=== PATIENT | male | born 1965 | race African-American/Black ===

== ENCOUNTER 2020-07-04 20:15 | Inpatient (IN) | payer OTHER, SELFPAY ==
[~2020-07-04] VITALS: Ht 182.9 cm; Wt 57.2 kg
[2020-07-04 20:15] VITALS: BP_SYST 140
[2020-07-04 21:33] LABS: BASOPHILS # (AUTO) 0.1 K/uL (0.0-0.2); BASOPHILS % (AUTO) 1.7 % (0.0-2.0); EOSINOPHILS # (AUTO) 0.2 K/uL (0.0-0.4); EOSINOPHILS % (AUTO) 3.5 % (0.0-4.0); LYMPHOCYTES % (AUTO) 18.5 % (20.5-51.5); MEAN CORPUSCULAR HEMOGLOBIN 28 pg (27-31); MEAN CORPUSCULAR HGB CONC 33 % (32-36); MEAN CORPUSCULAR VOLUME 85 fL (79.0-98.0); MONOCYTES # (AUTO) 0.5 K/uL (0.0-1.0); MONOCYTES % (AUTO) 9.1 % (1.7-9.3); NEUTROPHILS # (AUTO) 3.6 K/uL (1.8-7.7); NEUTROPHILS % (AUTO) 67.2 % (40.0-70.0); PLATELET COUNT (AUTO) 116 K/uL (130-430); RED BLOOD CELL COUNT(AUTO) 2.52 MIL/uL (4.2-6.2); RED CELL DISTRIBUTION WIDTH 19.7 % (9.0-15.0); WHITE BLOOD COUNT (AUTO) 5.4 K/uL (4.8-10.8)
[2020-07-04 21:42] LABS: HEMATOCRIT 21.5 % (36-54)
[2020-07-04 22:01] LABS: CALCIUM 9.1 mg/dL (8.4-11.0); POTASSIUM 5.6 mmol/L (3.5-5.1)
[2020-07-04 22:07] LABS: ALBUMIN 2.3 g/dL (3.4-4.8); TOTAL BILIRUBIN 0.5 mg/dL (0.0-1.0)
[2020-07-04 22:20] LABS: CREATININE 10.94 mg/dL (0.55-1.30)
[2020-07-05] MEDS ORDERED: ZOLP5TAB2 PO (07:24)
[2020-07-05] MEDS ORDERED: ACET325T PO (07:25)
[2020-07-05] MEDS ORDERED: LIP20 PO (07:25)
[2020-07-05] MEDS ORDERED: GABA-529 PO (07:26)
[2020-07-05] MEDS ORDERED: HYDR-3917 PO (07:26)
[2020-07-05] MEDS ORDERED: DOXY100C PO (07:28)
[2020-07-05] MEDS ORDERED: SODIUM POLYSTYRENE SULFONATE 15 GM/60 ML UDBTL PO ONE (15:45)
[2020-07-06 00:37] VITALS: BP_SYST 161
[2020-07-06 07:56] LABS: ALBUMIN 2.3 g/dL (3.4-4.8); CALCIUM 8.8 mg/dL (8.4-11.0); PHOSPHORUS 5.4 mg/dL (2.7-4.5); POTASSIUM 5.1 mmol/L (3.5-5.1); TOTAL BILIRUBIN 0.4 mg/dL (0.0-1.0)
[2020-07-06 08:00] VITALS: BP_SYST 155
[2020-07-06 08:19] LABS: CREATININE 7.68 mg/dL (0.55-1.30)
[2020-07-06 08:20] LABS: BASOPHILS % (AUTO) 0.8 % (0.0-2.0); EOSINOPHILS # (AUTO) 0.2 K/uL (0.0-0.4); EOSINOPHILS % (AUTO) 3.3 % (0.0-4.0); LYMPHOCYTES % (AUTO) 18.4 % (20.5-51.5); MEAN CORPUSCULAR HEMOGLOBIN 29 pg (27-31); MEAN CORPUSCULAR HGB CONC 33 % (32-36); MEAN CORPUSCULAR VOLUME 89 fL (79.0-98.0); MONOCYTES # (AUTO) 0.4 K/uL (0.0-1.0); MONOCYTES % (AUTO) 7.8 % (1.7-9.3); NEUTROPHILS # (AUTO) 3.9 K/uL (1.8-7.7); NEUTROPHILS % (AUTO) 69.7 % (40.0-70.0); PLATELET COUNT (AUTO) 121 K/uL (130-430); RED BLOOD CELL COUNT(AUTO) 2.25 MIL/uL (4.2-6.2); RED CELL DISTRIBUTION WIDTH 19.7 % (9.0-15.0); WHITE BLOOD COUNT (AUTO) 5.6 K/uL (4.8-10.8)
[2020-07-06] MEDS ORDERED: HYDROcodone/ACETAMIN 5-325 MG TAB (NORCO/ VICODIN) PO PRN (08:30)
[2020-07-06] MEDS ORDERED: GABAPENTIN 100 MG CAPSULE PO ONE (08:30)
[2020-07-06] MEDS ORDERED: NALOXONE HCL 0.4 MG/ML AMP (NARCAN) IVP PRN (08:30)
[2020-07-06] MEDS ORDERED: ACETAMINOPHEN 325 MG TABLET PO PRN (08:30)
[2020-07-06] MEDS ORDERED: DOXYCYCLINE HYCLATE 100 MG CAPSULE PO ONE (08:30)
[2020-07-06 09:06] LABS: HEMATOCRIT 20.1 % (36-54); HEMOGLOBIN 6.6 g/dL (14.0-18.0)
[2020-07-06] MEDS ORDERED: AZITHROMYCIN 500 MG in NS 250 ML IV SCH (11:00)
[2020-07-06 12:59] VITALS: BP_SYST 150
[2020-07-06] MEDS: GABAPENTIN 100 MG CAPSULE PO SCH ×2 (14:36→21:26)
[2020-07-06] MEDS ORDERED: CEFEPIME 2 GM in D5W 100 ML IV SCH (15:30)
[2020-07-06] MEDS: SEVELAMER CARBONATE 800 MG TABLET PO SCH ×2 (15:31→17:27)
[2020-07-06] MEDS ORDERED: CEFEPIME 2 GM/VIAL (MAXIPIME) ONE (18:42)
[2020-07-06] MEDS: DOXYCYCLINE HYCLATE 100 MG CAPSULE PO SCH (21:26)
[2020-07-06] MEDS: ATORVASTATIN 20 MG TABLET PO SCH (21:26)
[2020-07-06] MEDS: ZOLPIDEM TARTRATE 5 MG TABLET PO PRN (21:40)
[2020-07-07] MEDS: GABAPENTIN 100 MG CAPSULE PO SCH ×3 (07:20→23:20)
[2020-07-07 08:00] VITALS: BP_SYST 171
[2020-07-07 08:28] LABS: BASOPHILS # (AUTO) 0.1 K/uL (0.0-0.2); EOSINOPHILS # (AUTO) 0.3 K/uL (0.0-0.4); EOSINOPHILS % (AUTO) 4.2 % (0.0-4.0); HEMATOCRIT 27.6 % (36-54); HEMOGLOBIN 9.3 g/dL (14.0-18.0); LYMPHOCYTES # (AUTO) 1.2 K/uL (1.0-5.5); LYMPHOCYTES % (AUTO) 18.5 % (20.5-51.5); MEAN CORPUSCULAR HEMOGLOBIN 29 pg (27-31); MEAN CORPUSCULAR HGB CONC 34 % (32-36); MEAN CORPUSCULAR VOLUME 87 fL (79.0-98.0); MONOCYTES # (AUTO) 0.4 K/uL (0.0-1.0); MONOCYTES % (AUTO) 5.8 % (1.7-9.3); NEUTROPHILS # (AUTO) 4.7 K/uL (1.8-7.7); NEUTROPHILS % (AUTO) 70.5 % (40.0-70.0); PLATELET COUNT (AUTO) 129 K/uL (130-430); RED BLOOD CELL COUNT(AUTO) 3.16 MIL/uL (4.2-6.2); RED CELL DISTRIBUTION WIDTH 17.8 % (9.0-15.0); WHITE BLOOD COUNT (AUTO) 6.7 K/uL (4.8-10.8)
[2020-07-07] MEDS: EPOETIN ALFA 10,000 UNITS/ML VIAL SUBCUT SCH (08:42)
[2020-07-07] MEDS: DOXYCYCLINE HYCLATE 100 MG CAPSULE PO SCH ×2 (08:42→23:20)
[2020-07-07] MEDS: SEVELAMER CARBONATE 800 MG TABLET PO SCH ×3 (08:42→17:15)
[2020-07-07 08:47] LABS: CALCIUM 8.6 mg/dL (8.4-11.0); CREATININE 5.82 mg/dL (0.55-1.30); POTASSIUM 5.6 mmol/L (3.5-5.1)
[2020-07-07 12:04] VITALS: BP_SYST 196
[2020-07-07] MEDS ORDERED: SODIUM POLYSTYRENE SULFONATE 15 GM/60 ML UDBTL PO ONE (15:15)
[2020-07-07] MEDS: HYDROcodone/ACETAMIN 5-325 MG TAB (NORCO/ VICODIN) PO PRN ×2 (15:16→23:20)
[2020-07-07] MEDS ORDERED: HYDROcodone/ACETAMIN 5-325 MG TAB (NORCO/ VICODIN) ONE (15:16)
[2020-07-07 16:03] VITALS: BP_SYST 160
[2020-07-07 20:00] VITALS: BP_SYST 158
[2020-07-07] MEDS: ZOLPIDEM TARTRATE 5 MG TABLET PO PRN (23:20)
[2020-07-07] MEDS: ATORVASTATIN 20 MG TABLET PO SCH (23:20)
[2020-07-08] VITALS: BP_SYST 189
[2020-07-08] MEDS: cloNIDine HCL 0.1 MG TABLET PO PRN ×3 (01:45→17:28)
[2020-07-08 06:30] VITALS: BP_SYST 179
[2020-07-08] MEDS: GABAPENTIN 100 MG CAPSULE PO SCH ×3 (06:45→21:41)
[2020-07-08] MEDS: HYDROcodone/ACETAMIN 5-325 MG TAB (NORCO/ VICODIN) PO PRN ×2 (06:45→21:41)
[2020-07-08 08:23] VITALS: BP_SYST 191
[2020-07-08] MEDS: DOXYCYCLINE HYCLATE 100 MG CAPSULE PO SCH ×2 (08:24→21:41)
[2020-07-08] MEDS: SEVELAMER CARBONATE 800 MG TABLET PO SCH ×3 (08:24→17:28)
[2020-07-08 12:29] VITALS: BP_SYST 165
[2020-07-08 15:57] VITALS: BP_SYST 164
[2020-07-08 20:00] VITALS: BP_SYST 158
[2020-07-08] MEDS: ATORVASTATIN 20 MG TABLET PO SCH (21:41)
[2020-07-09] VITALS: BP_SYST 155
[2020-07-09] MEDS: ZOLPIDEM TARTRATE 5 MG TABLET PO PRN (01:08)
[2020-07-09] MEDS: GABAPENTIN 100 MG CAPSULE PO SCH ×3 (05:24→22:16)
[2020-07-09 07:52] VITALS: BP_SYST 156
[2020-07-09] MEDS: SEVELAMER CARBONATE 800 MG TABLET PO SCH ×3 (07:53→17:49)
[2020-07-09 08:58] LABS: BASOPHILS # (AUTO) 0.1 K/uL (0.0-0.2); BASOPHILS % (AUTO) 1.4 % (0.0-2.0); EOSINOPHILS # (AUTO) 0.3 K/uL (0.0-0.4); EOSINOPHILS % (AUTO) 4.4 % (0.0-4.0); HEMATOCRIT 26.6 % (36-54); HEMOGLOBIN 8.8 g/dL (14.0-18.0); LYMPHOCYTES # (AUTO) 1.3 K/uL (1.0-5.5); LYMPHOCYTES % (AUTO) 18.4 % (20.5-51.5); MEAN CORPUSCULAR HEMOGLOBIN 30 pg (27-31); MEAN CORPUSCULAR HGB CONC 33 % (32-36); MEAN CORPUSCULAR VOLUME 89 fL (79.0-98.0); MONOCYTES # (AUTO) 0.4 K/uL (0.0-1.0); MONOCYTES % (AUTO) 5.3 % (1.7-9.3); NEUTROPHILS # (AUTO) 4.8 K/uL (1.8-7.7); NEUTROPHILS % (AUTO) 70.5 % (40.0-70.0); PLATELET COUNT (AUTO) 129 K/uL (130-430); RED BLOOD CELL COUNT(AUTO) 2.97 MIL/uL (4.2-6.2); RED CELL DISTRIBUTION WIDTH 18.4 % (9.0-15.0); WHITE BLOOD COUNT (AUTO) 6.8 K/uL (4.8-10.8)
[2020-07-09] MEDS: DOXYCYCLINE HYCLATE 100 MG CAPSULE PO SCH ×2 (09:00→22:15)
[2020-07-09 09:20] LABS: CALCIUM 8.7 mg/dL (8.4-11.0); CREATININE 6.89 mg/dL (0.55-1.30); POTASSIUM 5.3 mmol/L (3.5-5.1)
[2020-07-09 16:06] VITALS: BP_SYST 174
[2020-07-09] MEDS: hydrALAZINE HCL 25 MG TABLET PO SCH (16:07)
[2020-07-09] MEDS: FAMOTIDINE 20 MG TABLET PO SCH (16:07)
[2020-07-09] MEDS: CHOLECALCIFEROL (VITAMIN D3) 2,000 UNIT TABLET PO SCH (16:07)
[2020-07-09] MEDS: ASCORBIC ACID 500 MG TABLET PO SCH ×2 (16:07→22:16)
[2020-07-09 22:11] VITALS: BP_SYST 179
[2020-07-09] MEDS: ATORVASTATIN 20 MG TABLET PO SCH (22:15)
[2020-07-09] MEDS: HYDROcodone/ACETAMIN 5-325 MG TAB (NORCO/ VICODIN) PO PRN (22:18)
[2020-07-09] MEDS: cloNIDine HCL 0.1 MG TABLET PO PRN (22:20)
[2020-07-10 00:28] VITALS: BP_SYST 159
[2020-07-10] MEDS: GABAPENTIN 100 MG CAPSULE PO SCH ×3 (05:58→21:36)
[2020-07-10 08:00] VITALS: BP_SYST 153
[2020-07-10] MEDS: hydrALAZINE HCL 25 MG TABLET PO SCH (09:00)
[2020-07-10] MEDS: SEVELAMER CARBONATE 800 MG TABLET PO SCH ×3 (09:30→19:10)
[2020-07-10 10:18] LABS: CALCIUM 7.9 mg/dL (8.4-11.0); POTASSIUM 5.6 mmol/L (3.5-5.1)
[2020-07-10] MEDS: FAMOTIDINE 20 MG TABLET PO SCH (10:30)
[2020-07-10] MEDS: ASCORBIC ACID 500 MG TABLET PO SCH ×2 (10:30→21:36)
[2020-07-10] MEDS: DOXYCYCLINE HYCLATE 100 MG CAPSULE PO SCH ×2 (10:30→21:36)
[2020-07-10] MEDS: CHOLECALCIFEROL (VITAMIN D3) 2,000 UNIT TABLET PO SCH (10:30)
[2020-07-10 10:57] LABS: CREATININE 8.86 mg/dL (0.55-1.30)
[2020-07-10] MEDS: HYDROcodone/ACETAMIN 5-325 MG TAB (NORCO/ VICODIN) PO PRN ×2 (11:00→21:49)
[2020-07-10 12:00] VITALS: BP_SYST 160
[2020-07-10 16:00] VITALS: BP_SYST 178
[2020-07-10] MEDS ORDERED: DEXAMETHASONE SOD PHOSPHATE 10 MG/ML VIAL IVP SCH (16:45)
[2020-07-10] MEDS: EPOETIN ALFA 10,000 UNITS/ML VIAL SUBCUT SCH (19:19)
[2020-07-10 20:00] VITALS: BP_SYST 173
[2020-07-10] MEDS: ATORVASTATIN 20 MG TABLET PO SCH (21:36)
[2020-07-10] MEDS: cloNIDine HCL 0.1 MG TABLET PO PRN (21:48)
[2020-07-11] VITALS: BP_SYST 172
[2020-07-11] MEDS: cloNIDine HCL 0.1 MG TABLET PO PRN ×2 (01:50→21:30)
[2020-07-11 05:40] VITALS: BP_SYST 163
[2020-07-11] MEDS: GABAPENTIN 100 MG CAPSULE PO SCH ×3 (05:40→21:05)
[2020-07-11] MEDS: SEVELAMER CARBONATE 800 MG TABLET PO SCH ×3 (08:00→18:16)
[2020-07-11] MEDS: hydrALAZINE HCL 25 MG TABLET PO SCH (09:00)
[2020-07-11] MEDS: CHOLECALCIFEROL (VITAMIN D3) 2,000 UNIT TABLET PO SCH (09:00)
[2020-07-11] MEDS: DOXYCYCLINE HYCLATE 100 MG CAPSULE PO SCH ×2 (09:00→21:00)
[2020-07-11] MEDS: ASCORBIC ACID 500 MG TABLET PO SCH ×2 (09:00→21:00)
[2020-07-11] MEDS: FAMOTIDINE 20 MG TABLET PO SCH (09:00)
[2020-07-11 09:54] LABS: CALCIUM 8.6 mg/dL (8.4-11.0); CREATININE 6.36 mg/dL (0.55-1.30)
[2020-07-11] MEDS: HYDROcodone/ACETAMIN 5-325 MG TAB (NORCO/ VICODIN) PO PRN ×4 (10:30→23:49)
[2020-07-11 12:05] VITALS: BP_SYST 169
[2020-07-11 16:02] VITALS: BP_SYST 155
[2020-07-11 20:00] VITALS: BP_SYST 169
[2020-07-11] MEDS: ATORVASTATIN 20 MG TABLET PO SCH (21:00)
[2020-07-11] MEDS: ZOLPIDEM TARTRATE 5 MG TABLET PO PRN (23:50)
[2020-07-12] VITALS (7 sets, daily range): BP systolic 142–197
[2020-07-12] MEDS: HYDROcodone/ACETAMIN 5-325 MG TAB (NORCO/ VICODIN) PO PRN ×3 (05:30→16:44)
[2020-07-12] MEDS: GABAPENTIN 100 MG CAPSULE PO SCH ×3 (05:30→22:26)
[2020-07-12] MEDS: SEVELAMER CARBONATE 800 MG TABLET PO SCH ×3 (08:26→16:43)
[2020-07-12] MEDS: hydrALAZINE HCL 25 MG TABLET PO SCH (08:27)
[2020-07-12] MEDS: ASCORBIC ACID 500 MG TABLET PO SCH ×2 (08:27→22:26)
[2020-07-12] MEDS: FAMOTIDINE 20 MG TABLET PO SCH (08:27)
[2020-07-12] MEDS: CHOLECALCIFEROL (VITAMIN D3) 2,000 UNIT TABLET PO SCH (08:27)
[2020-07-12] MEDS: DOXYCYCLINE HYCLATE 100 MG CAPSULE PO SCH ×2 (08:27→22:26)
[2020-07-12 08:58] LABS: CALCIUM 8.8 mg/dL (8.4-11.0)
[2020-07-12 09:03] LABS: BASOPHILS # (AUTO) 0.1 K/uL (0.0-0.2); BASOPHILS % (AUTO) 1.2 % (0.0-2.0); EOSINOPHILS # (AUTO) 0.3 K/uL (0.0-0.4); EOSINOPHILS % (AUTO) 4.5 % (0.0-4.0); HEMOGLOBIN 9.1 g/dL (14.0-18.0); LYMPHOCYTES # (AUTO) 1.1 K/uL (1.0-5.5); LYMPHOCYTES % (AUTO) 17.2 % (20.5-51.5); MEAN CORPUSCULAR HEMOGLOBIN 30 pg (27-31); MEAN CORPUSCULAR HGB CONC 33 % (32-36); MEAN CORPUSCULAR VOLUME 93 fL (79.0-98.0); MONOCYTES # (AUTO) 0.3 K/uL (0.0-1.0); MONOCYTES % (AUTO) 5.2 % (1.7-9.3); NEUTROPHILS # (AUTO) 4.7 K/uL (1.8-7.7); NEUTROPHILS % (AUTO) 71.9 % (40.0-70.0); PLATELET COUNT (AUTO) 125 K/uL (130-430); RED BLOOD CELL COUNT(AUTO) 3.02 MIL/uL (4.2-6.2); RED CELL DISTRIBUTION WIDTH 18.2 % (9.0-15.0); WHITE BLOOD COUNT (AUTO) 6.6 K/uL (4.8-10.8)
[2020-07-12 09:48] LABS: CREATININE 8.77 mg/dL (0.55-1.30); POTASSIUM 6.1 mmol/L (3.5-5.1)
[2020-07-12] MEDS: EPOETIN ALFA 10,000 UNITS/ML VIAL SUBCUT SCH (11:47)
[2020-07-12] MEDS: DECADRON 4 MG TABLET PO SCH (13:37)
[2020-07-12] MEDS: cloNIDine HCL 0.1 MG TABLET PO PRN (16:26)
[2020-07-12] MEDS: ZOLPIDEM TARTRATE 5 MG TABLET PO PRN (22:26)
[2020-07-12] MEDS: ATORVASTATIN 20 MG TABLET PO SCH (22:26)
[2020-07-13] VITALS: BP_SYST 157
[2020-07-13] MEDS: GABAPENTIN 100 MG CAPSULE PO SCH ×3 (07:05→21:41)
[2020-07-13 08:00] VITALS: BP_SYST 170
[2020-07-13] MEDS: SEVELAMER CARBONATE 800 MG TABLET PO SCH ×3 (08:33→18:28)
[2020-07-13] MEDS: ASCORBIC ACID 500 MG TABLET PO SCH ×2 (08:33→21:40)
[2020-07-13] MEDS: hydrALAZINE HCL 25 MG TABLET PO SCH (08:33)
[2020-07-13] MEDS: CHOLECALCIFEROL (VITAMIN D3) 2,000 UNIT TABLET PO SCH (08:33)
[2020-07-13] MEDS: FAMOTIDINE 20 MG TABLET PO SCH (08:33)
[2020-07-13] MEDS: HYDROcodone/ACETAMIN 5-325 MG TAB (NORCO/ VICODIN) PO PRN ×2 (08:34→21:40)
[2020-07-13] MEDS: DOXYCYCLINE HYCLATE 100 MG CAPSULE PO SCH (08:35)
[2020-07-13] MEDS: DECADRON 4 MG TABLET PO SCH (11:51)
[2020-07-13 12:00] VITALS: BP_SYST 145
[2020-07-13 16:00] VITALS: BP_SYST 190
[2020-07-13 20:00] VITALS: BP_SYST 171
[2020-07-13] MEDS: ZOLPIDEM TARTRATE 5 MG TABLET PO PRN (21:39)
[2020-07-13] MEDS: ATORVASTATIN 20 MG TABLET PO SCH (21:40)
[2020-07-13] MEDS: cloNIDine HCL 0.1 MG TABLET PO PRN (21:40)
[2020-07-13 22:22] LABS: CALCIUM 8.9 mg/dL (8.4-11.0)
[2020-07-13 22:44] LABS: CREATININE 8.13 mg/dL (0.55-1.30); POTASSIUM 6.5 mmol/L (3.5-5.1)
[2020-07-13] MEDS ORDERED: SODIUM POLYSTYRENE SULFONATE 15 GM/60 ML UDBTL PO ONE (23:15)
[2020-07-14] MEDS: HYDROcodone/ACETAMIN 5-325 MG TAB (NORCO/ VICODIN) PO PRN ×2 (04:39→08:46)
[2020-07-14] MEDS: GABAPENTIN 100 MG CAPSULE PO SCH ×3 (06:48→21:36)
[2020-07-14 08:00] VITALS: BP_SYST 208
[2020-07-14] MEDS: CHOLECALCIFEROL (VITAMIN D3) 2,000 UNIT TABLET PO SCH (08:45)
[2020-07-14] MEDS: ASCORBIC ACID 500 MG TABLET PO SCH ×2 (08:45→21:36)
[2020-07-14] MEDS: FAMOTIDINE 20 MG TABLET PO SCH (08:45)
[2020-07-14] MEDS: SEVELAMER CARBONATE 800 MG TABLET PO SCH ×3 (08:45→17:24)
[2020-07-14] MEDS: hydrALAZINE HCL 25 MG TABLET PO SCH (08:46)
[2020-07-14] MEDS: DECADRON 4 MG TABLET PO SCH (11:53)
[2020-07-14] MEDS ORDERED: LOSARTAN POTASSIUM 50 MG TABLET (COZAAR) PO ONE (15:45)
[2020-07-14] MEDS ORDERED: LOSARTAN POTASSIUM 50 MG TABLET (COZAAR) ONE (15:58)
[2020-07-14 16:00] VITALS: BP_SYST 200
[2020-07-14] MEDS ORDERED: amLODIPine BESYLATE 5 MG TABLET PO ONE (17:15)
[2020-07-14] MEDS: EPOETIN ALFA 10,000 UNITS/ML VIAL SUBCUT SCH (17:24)
[2020-07-14] MEDS ORDERED: amLODIPine BESYLATE 5 MG TABLET ONE (17:24)
[2020-07-14 20:00] VITALS: BP_SYST 202
[2020-07-14] MEDS ORDERED: LOSARTAN POTASSIUM 25 MG TABLET PO SCH (21:00)
[2020-07-14] MEDS: ATORVASTATIN 20 MG TABLET PO SCH (21:36)
[2020-07-14] MEDS: ZOLPIDEM TARTRATE 5 MG TABLET PO PRN (21:37)
[2020-07-15] VITALS: BP_SYST 155
[2020-07-15] MEDS: HYDROcodone/ACETAMIN 5-325 MG TAB (NORCO/ VICODIN) PO PRN ×6 (01:08→22:30)
[2020-07-15] MEDS: GABAPENTIN 100 MG CAPSULE PO SCH ×3 (06:15→21:40)
[2020-07-15 06:42] LABS: BASOPHILS % (AUTO) 0.2 % (0.0-2.0); HEMATOCRIT 28.2 % (36-54); HEMOGLOBIN 9.2 g/dL (14.0-18.0); LYMPHOCYTES # (AUTO) 0.4 K/uL (1.0-5.5); LYMPHOCYTES % (AUTO) 9.9 % (20.5-51.5); MEAN CORPUSCULAR HEMOGLOBIN 29 pg (27-31); MEAN CORPUSCULAR HGB CONC 33 % (32-36); MEAN CORPUSCULAR VOLUME 90 fL (79.0-98.0); MONOCYTES # (AUTO) 0.4 K/uL (0.0-1.0); MONOCYTES % (AUTO) 8.8 % (1.7-9.3); NEUTROPHILS # (AUTO) 3.4 K/uL (1.8-7.7); NEUTROPHILS % (AUTO) 81.1 % (40.0-70.0); PLATELET COUNT (AUTO) 158 K/uL (130-430); RED BLOOD CELL COUNT(AUTO) 3.14 MIL/uL (4.2-6.2); RED CELL DISTRIBUTION WIDTH 18.7 % (9.0-15.0); WHITE BLOOD COUNT (AUTO) 4.2 K/uL (4.8-10.8)
[2020-07-15 06:51] LABS: ALBUMIN 2.7 g/dL (3.4-4.8); CALCIUM 8.2 mg/dL (8.4-11.0); CREATININE 6.77 mg/dL (0.55-1.30); POTASSIUM 4.9 mmol/L (3.5-5.1); TOTAL BILIRUBIN 0.4 mg/dL (0.0-1.0)
[2020-07-15 08:00] VITALS: BP_SYST 184
[2020-07-15] MEDS: CHOLECALCIFEROL (VITAMIN D3) 2,000 UNIT TABLET PO SCH (08:18)
[2020-07-15] MEDS: FAMOTIDINE 20 MG TABLET PO SCH (08:18)
[2020-07-15] MEDS: SEVELAMER CARBONATE 800 MG TABLET PO SCH ×3 (08:18→18:13)
[2020-07-15] MEDS: cloNIDine HCL 0.1 MG TABLET PO PRN (08:18)
[2020-07-15] MEDS: ASCORBIC ACID 500 MG TABLET PO SCH ×2 (08:18→21:40)
[2020-07-15] MEDS ORDERED: LOSARTAN POTASSIUM 25 MG TABLET PO SCH (09:00)
[2020-07-15 12:03] VITALS: BP_SYST 157
[2020-07-15] MEDS: DECADRON 4 MG TABLET PO SCH (12:30)
[2020-07-15] MEDS ORDERED: LOSARTAN POTASSIUM 25 MG TABLET ONE (13:12)
[2020-07-15] MEDS ORDERED: LOSARTAN POTASSIUM 25 MG TABLET PO ONE (13:15)
[2020-07-15 16:10] VITALS: BP_SYST 157
[2020-07-15 20:00] VITALS: BP_SYST 142
[2020-07-15] MEDS: ATORVASTATIN 20 MG TABLET PO SCH (21:40)
[2020-07-15] MEDS: LOSARTAN POTASSIUM 25 MG TABLET PO SCH (21:40)
[2020-07-16] VITALS: BP_SYST 132
[2020-07-16] MEDS: HYDROcodone/ACETAMIN 5-325 MG TAB (NORCO/ VICODIN) PO PRN ×5 (04:29→21:33)
[2020-07-16] MEDS: GABAPENTIN 100 MG CAPSULE PO SCH ×3 (06:00→21:27)
[2020-07-16 06:41] LABS: BASOPHILS % (AUTO) 0.4 % (0.0-2.0); EOSINOPHILS % (AUTO) 0.4 % (0.0-4.0); HEMATOCRIT 28.7 % (36-54); HEMOGLOBIN 9.3 g/dL (14.0-18.0); LYMPHOCYTES # (AUTO) 1.3 K/uL (1.0-5.5); LYMPHOCYTES % (AUTO) 25.2 % (20.5-51.5); MEAN CORPUSCULAR HEMOGLOBIN 29 pg (27-31); MEAN CORPUSCULAR HGB CONC 32 % (32-36); MEAN CORPUSCULAR VOLUME 90 fL (79.0-98.0); MONOCYTES # (AUTO) 0.5 K/uL (0.0-1.0); MONOCYTES % (AUTO) 10.2 % (1.7-9.3); NEUTROPHILS # (AUTO) 3.3 K/uL (1.8-7.7); NEUTROPHILS % (AUTO) 63.8 % (40.0-70.0); PLATELET COUNT (AUTO) 149 K/uL (130-430); RED BLOOD CELL COUNT(AUTO) 3.19 MIL/uL (4.2-6.2); WHITE BLOOD COUNT (AUTO) 5.3 K/uL (4.8-10.8)
[2020-07-16 07:06] LABS: ALBUMIN 2.6 g/dL (3.4-4.8); CALCIUM 8.3 mg/dL (8.4-11.0); POTASSIUM 5.7 mmol/L (3.5-5.1); TOTAL BILIRUBIN 0.4 mg/dL (0.0-1.0)
[2020-07-16 07:08] LABS: CREATININE 8.3 mg/dL (0.55-1.30)
[2020-07-16 08:00] VITALS: BP_SYST 176
[2020-07-16] MEDS: SEVELAMER CARBONATE 800 MG TABLET PO SCH ×3 (08:00→18:27)
[2020-07-16] MEDS: ASCORBIC ACID 500 MG TABLET PO SCH ×2 (10:20→21:27)
[2020-07-16] MEDS: LOSARTAN POTASSIUM 25 MG TABLET PO SCH ×2 (10:21→21:26)
[2020-07-16] MEDS: CHOLECALCIFEROL (VITAMIN D3) 2,000 UNIT TABLET PO SCH (10:22)
[2020-07-16] MEDS: DECADRON 4 MG TABLET PO SCH (10:22)
[2020-07-16] MEDS: FAMOTIDINE 20 MG TABLET PO SCH (10:23)
[2020-07-16 15:25] VITALS: BP_SYST 159
[2020-07-16 17:30] VITALS: BP_SYST 176
[2020-07-16 19:00] VITALS: BP_SYST 196
[2020-07-16 20:00] VITALS: BP_SYST 189
[2020-07-16] MEDS: cloNIDine HCL 0.1 MG TABLET PO PRN (21:27)
[2020-07-16] MEDS: ATORVASTATIN 20 MG TABLET PO SCH (21:27)
[2020-07-16] MEDS: ZOLPIDEM TARTRATE 5 MG TABLET PO PRN (21:52)
[2020-07-17] VITALS: BP_SYST 160
[2020-07-17] MEDS: GABAPENTIN 100 MG CAPSULE PO SCH ×3 (06:30→22:55)
[2020-07-17] MEDS: cloNIDine HCL 0.1 MG TABLET PO PRN ×2 (06:30→16:13)
[2020-07-17] MEDS ORDERED: NALOXONE HCL 0.4 MG/ML AMP (NARCAN) IVP PRN (07:00)
[2020-07-17 07:03] LABS: CALCIUM 8.3 mg/dL (8.4-11.0); TOTAL BILIRUBIN 0.4 mg/dL (0.0-1.0)
[2020-07-17] MEDS ORDERED: HYDROcodone/ACETAMIN 5-325 MG TAB (NORCO/ VICODIN) ONE (07:06)
[2020-07-17 07:14] LABS: POTASSIUM 7.7 mmol/L (3.5-5.1)
[2020-07-17 07:19] LABS: CREATININE 10.03 mg/dL (0.55-1.30)
[2020-07-17 07:20] LABS: BASOPHILS % (AUTO) 0.4 % (0.0-2.0); HEMATOCRIT 31.3 % (36-54); HEMOGLOBIN 10.2 g/dL (14.0-18.0); LYMPHOCYTES # (AUTO) 0.3 K/uL (1.0-5.5); LYMPHOCYTES % (AUTO) 10.1 % (20.5-51.5); MEAN CORPUSCULAR HEMOGLOBIN 29 pg (27-31); MEAN CORPUSCULAR HGB CONC 33 % (32-36); MEAN CORPUSCULAR VOLUME 90 fL (79.0-98.0); MONOCYTES # (AUTO) 0.1 K/uL (0.0-1.0); MONOCYTES % (AUTO) 4.2 % (1.7-9.3); NEUTROPHILS # (AUTO) 2.6 K/uL (1.8-7.7); NEUTROPHILS % (AUTO) 85.3 % (40.0-70.0); PLATELET COUNT (AUTO) 153 K/uL (130-430); RED BLOOD CELL COUNT(AUTO) 3.49 MIL/uL (4.2-6.2); RED CELL DISTRIBUTION WIDTH 18.7 % (9.0-15.0)
[2020-07-17 07:45] VITALS: BP_SYST 185
[2020-07-17] MEDS: FAMOTIDINE 20 MG TABLET PO SCH (09:21)
[2020-07-17] MEDS: SEVELAMER CARBONATE 800 MG TABLET PO SCH ×4 (09:21→18:03)
[2020-07-17] MEDS: ASCORBIC ACID 500 MG TABLET PO SCH ×2 (09:22→22:54)
[2020-07-17] MEDS: LOSARTAN POTASSIUM 25 MG TABLET PO SCH ×2 (09:22→22:55)
[2020-07-17] MEDS: CHOLECALCIFEROL (VITAMIN D3) 2,000 UNIT TABLET PO SCH (09:22)
[2020-07-17 11:00] VITALS: BP_SYST 181
[2020-07-17] MEDS: DECADRON 4 MG TABLET PO SCH (12:32)
[2020-07-17 15:59] VITALS: BP_SYST 188
[2020-07-17] MEDS: EPOETIN ALFA 10,000 UNITS/ML VIAL SUBCUT SCH (17:45)
[2020-07-17 17:58] LABS: POTASSIUM 3.8 mmol/L (3.5-5.1)
[2020-07-17 17:59] LABS: CREATININE 5.61 mg/dL (0.55-1.30)
[2020-07-17] MEDS ORDERED: hydrALAZINE HCL 25 MG TABLET PO ONE (19:45)
[2020-07-17 22:43] VITALS: BP_SYST 189
[2020-07-17] MEDS: ATORVASTATIN 20 MG TABLET PO SCH (22:54)
[2020-07-17] MEDS: BALSAM PERU/CASTOR OIL 60 GM OINT...G. TP SCH (22:56)
[2020-07-17] MEDS: ZOLPIDEM TARTRATE 5 MG TABLET PO PRN (23:07)
[2020-07-17] MEDS: HYDROcodone/ACETAMIN 5-325 MG TAB (NORCO/ VICODIN) PO PRN (23:08)
[2020-07-18] VITALS: BP_SYST 168
[2020-07-18 07:16] LABS: CALCIUM 8.2 mg/dL (8.4-11.0); CREATININE 7.24 mg/dL (0.55-1.30)
[2020-07-18] MEDS: GABAPENTIN 100 MG CAPSULE PO SCH ×3 (07:28→21:20)
[2020-07-18] MEDS: SEVELAMER CARBONATE 800 MG TABLET PO SCH ×3 (07:59→17:01)
[2020-07-18] MEDS: LOSARTAN POTASSIUM 25 MG TABLET PO SCH ×2 (07:59→21:20)
[2020-07-18] MEDS: HYDROcodone/ACETAMIN 5-325 MG TAB (NORCO/ VICODIN) PO PRN ×3 (08:00→18:39)
[2020-07-18] MEDS: ASCORBIC ACID 500 MG TABLET PO SCH ×2 (08:01→21:20)
[2020-07-18] MEDS: FAMOTIDINE 20 MG TABLET PO SCH (08:01)
[2020-07-18 08:04] VITALS: BP_SYST 189
[2020-07-18] MEDS: CHOLECALCIFEROL (VITAMIN D3) 2,000 UNIT TABLET PO SCH (08:04)
[2020-07-18 08:18] LABS: POTASSIUM 5.9 mmol/L (3.5-5.1)
[2020-07-18] MEDS ORDERED: hydrALAZINE HCL 25 MG TABLET PO SCH (09:00)
[2020-07-18 11:21] VITALS: BP_SYST 158
[2020-07-18] MEDS: BALSAM PERU/CASTOR OIL 60 GM OINT...G. TP SCH (11:21)
[2020-07-18] MEDS: DECADRON 4 MG TABLET PO SCH (11:21)
[2020-07-18] MEDS: hydrALAZINE HCL 25 MG TABLET PO SCH ×2 (11:30→21:20)
[2020-07-18 11:43] VITALS: BP_SYST 142
[2020-07-18 14:45] VITALS: BP_SYST 141
[2020-07-18] MEDS: cloNIDine HCL 0.1 MG TABLET PO PRN (16:24)
[2020-07-18 20:00] VITALS: BP_SYST 147
[2020-07-18] MEDS: ATORVASTATIN 20 MG TABLET PO SCH (21:20)
[2020-07-19] MEDS: HYDROcodone/ACETAMIN 5-325 MG TAB (NORCO/ VICODIN) PO PRN ×3 (04:05→15:06)
[2020-07-19] MEDS: GABAPENTIN 100 MG CAPSULE PO SCH ×2 (05:33→15:02)
[2020-07-19 07:46] LABS: BASOPHILS % (AUTO) 0.2 % (0.0-2.0); HEMATOCRIT 31.6 % (36-54); HEMOGLOBIN 10.2 g/dL (14.0-18.0); LYMPHOCYTES # (AUTO) 0.4 K/uL (1.0-5.5); LYMPHOCYTES % (AUTO) 7.8 % (20.5-51.5); MEAN CORPUSCULAR HEMOGLOBIN 29 pg (27-31); MEAN CORPUSCULAR HGB CONC 32 % (32-36); MEAN CORPUSCULAR VOLUME 89 fL (79.0-98.0); MONOCYTES # (AUTO) 0.4 K/uL (0.0-1.0); MONOCYTES % (AUTO) 8.5 % (1.7-9.3); NEUTROPHILS # (AUTO) 3.9 K/uL (1.8-7.7); NEUTROPHILS % (AUTO) 83.5 % (40.0-70.0); PLATELET COUNT (AUTO) 135 K/uL (130-430); RED BLOOD CELL COUNT(AUTO) 3.53 MIL/uL (4.2-6.2); WHITE BLOOD COUNT (AUTO) 4.6 K/uL (4.8-10.8)
[2020-07-19 08:00] VITALS: BP_SYST 157
[2020-07-19] MEDS: SEVELAMER CARBONATE 800 MG TABLET PO SCH ×3 (08:00→17:34)
[2020-07-19 08:11] LABS: CALCIUM 8.4 mg/dL (8.4-11.0); CREATININE 6.24 mg/dL (0.55-1.30)
[2020-07-19 08:45] LABS: POTASSIUM 5.8 mmol/L (3.5-5.1)
[2020-07-19] MEDS ORDERED: SODIUM ZIRCONIUM CYCLOSILICATE 10 GM POWD.PACK PO SCH (09:00)
[2020-07-19] MEDS ORDERED: NIFEdipine 30 MG TAB.ER.24 PO SCH (09:00)
[2020-07-19] MEDS: ASCORBIC ACID 500 MG TABLET PO SCH (10:04)
[2020-07-19] MEDS: BALSAM PERU/CASTOR OIL 60 GM OINT...G. TP SCH (10:05)
[2020-07-19] MEDS: FAMOTIDINE 20 MG TABLET PO SCH (10:05)
[2020-07-19] MEDS: CHOLECALCIFEROL (VITAMIN D3) 2,000 UNIT TABLET PO SCH (10:05)
[2020-07-19] MEDS: hydrALAZINE HCL 25 MG TABLET PO SCH (10:13)
[2020-07-19] MEDS: DECADRON 4 MG TABLET PO SCH (11:56)
[2020-07-19 12:00] VITALS: BP_SYST 149
[2020-07-19] MEDS: cloNIDine HCL 0.1 MG TABLET PO PRN (17:34)
[2020-07-19] MEDS: EPOETIN ALFA 10,000 UNITS/ML VIAL SUBCUT SCH (17:34)
[2020-07-19 18:40] VITALS: BP_SYST 187
[2020-07-19] MEDS ORDERED: hydrALAZINE HCL 20 MG/ML VIAL IVP ONE (18:45)
[2020-07-19] MEDS ORDERED: hydrALAZINE HCL 20 MG/ML VIAL ONE (18:45)
[2020-07-19 19:56] VITALS: BP_SYST 143
== END 2020-07-19 19:45 | DRG 137 ==
LOC: SED 20:15 → STU 07-05 09:18
PROVIDERS: ADMIT Internal Medicine; ATTEND Internal Medicine
PROC: 5A1D70Z Performance of Urinary Filtration, Intermittent, Less than 6 Hours Per Day (ICD-10-PCS; 2020-07-05)
PROC: 5A1D70Z Performance of Urinary Filtration, Intermittent, Less than 6 Hours Per Day (ICD-10-PCS; 2020-07-06)
PROC: 5A1D70Z Performance of Urinary Filtration, Intermittent, Less than 6 Hours Per Day (ICD-10-PCS; 2020-07-07)
PROC: 5A1D70Z Performance of Urinary Filtration, Intermittent, Less than 6 Hours Per Day (ICD-10-PCS; 2020-07-09)
PROC: 5A1D70Z Performance of Urinary Filtration, Intermittent, Less than 6 Hours Per Day (ICD-10-PCS; 2020-07-11)
PROC: 5A1D70Z Performance of Urinary Filtration, Intermittent, Less than 6 Hours Per Day (ICD-10-PCS; 2020-07-12)
PROC: XW13325 Transfusion of Convalescent Plasma (Nonautologous) into Peripheral Vein, Percutaneous Approach, New Technology Group 5 (ICD-10-PCS; principal; 2020-07-13)
PROC: 30233N1 Transfusion of Nonautologous Red Blood Cells into Peripheral Vein, Percutaneous Approach (ICD-10-PCS; 2020-07-13)
PROC: 5A1D70Z Performance of Urinary Filtration, Intermittent, Less than 6 Hours Per Day (ICD-10-PCS; 2020-07-13)
PROC: 5A1D70Z Performance of Urinary Filtration, Intermittent, Less than 6 Hours Per Day (ICD-10-PCS; 2020-07-16)
PROC: 5A1D80Z Performance of Urinary Filtration, Prolonged Intermittent, 6-18 hours Per Day (ICD-10-PCS; 2020-07-18)
PROC: 5A1D70Z Performance of Urinary Filtration, Intermittent, Less than 6 Hours Per Day (ICD-10-PCS; 2020-07-19)
DX: U07.1 COVID-19 (principal); E43 Unspecified severe protein-calorie malnutrition; D64.9 Anemia, unspecified; N18.6 End stage renal disease; E87.5 Hyperkalemia; G62.9 Polyneuropathy, unspecified; D63.1 Anemia in chronic kidney disease; L97.419 Non-pressure chronic ulcer of right heel and midfoot with unspecified severity; R13.10 Dysphagia, unspecified; E78.5 Hyperlipidemia, unspecified; I73.9 Peripheral vascular disease, unspecified; I12.0 Hypertensive chronic kidney disease with stage 5 chronic kidney disease or end stage renal disease; Z79.899 Other long term (current) drug therapy; Z79.891 Long term (current) use of opiate analgesic; Z68.1 Body mass index [BMI] 19.9 or less, adult; Z86.19 Personal history of other infectious and parasitic diseases; Z87.01 Personal history of pneumonia (recurrent); Z89.512 Acquired absence of left leg below knee; Z99.2 Dependence on renal dialysis; J12.82 Pneumonia due to coronavirus disease 2019; Z11.52 Encounter for screening for COVID-19
CPT/HCPCS: 36415; 36430; 71045; 80048; 80053; 82272; 83735-TC; 84100-TC; 85025; 86886; 86900; 86901; 86920; 87081; 90935; 90937; 99285; G0378; J0360; J0456; J0692; J0885; J1100; J7030; J7050; J7060; J8540; P9017; P9021; U0003